=== PATIENT | male | born 1960 | race Caucasian/White ===

== ENCOUNTER 2022-11-06 16:38 | Observation (INO) | payer OTHER ==
[~2022-11-06] VITALS: Ht 182.9 cm; Wt 82.8 kg
[~2022-11-06 16:38] MED LIST: CO Q10100 MG PO; FISH OIL 1,0001 EAC5 PO; HYDCHL25 PO; LISI20 PO; LOVA40 PO; NADO40 PO; OSTERA TABLET1 EACH PO; Vitamin D2000 UNIT PO
[2022-11-06 21:13] LABS: Percent Saturation 4.7 % (20.0-50.0); Thyroid Stimulating Hormone 1.82 uIU/mL (0.360-4.800)
[2022-11-06 21:43] VITALS: BP 153/89
[2022-11-06 22:42] VITALS: BP 162/92
[2022-11-07] VITALS (8 sets, daily range): BP systolic 150–162; BP diastolic 77–93
[2022-11-07 01:08] LABS: Hematocrit 22.4 % (37.0-53.0); Hemoglobin 6.7 g/dL (13.5-17.5); Mean Corpuscular HGB 21.8 pg (26.0-34.0); Mean Corpuscular HGB Conc 29.9 g/dL (31.5-36.5); Mean Corpuscular Volume 73 fL (80-100); Platelet Count 75 K/mm3 (150-400); RDW Standard Deviation 54.2 fL (35.1-46.3); Red Blood Cell Count 3.08 M/mm3 (4.30-5.90); White Blood Cell Count 3.86 K/mm3 (4.00-11.30)
[2022-11-07 01:25] LABS: Mean Platelet Volume 10.3 fL (9.1-12.4)
[2022-11-07 01:32] LABS: Albumin, Blood 2.6 g/dL (3.4-5.0); Albumin/Globulin Ratio 0.6 (0.8-1.8); Bilirubin, Total 1.4 mg/dL (0.1-1.0); Bun/Creatinine Ratio 17.4 (12.0-20.0); Calcium, Blood 8.3 mg/dL (8.5-10.1); Creatinine, Blood 0.69 mg/dL (0.60-1.20); Potassium, Blood 3.9 mmol/L (3.5-5.5); Total Protein, Blood 6.6 g/dL (6.4-8.2)
[2022-11-07 02:03] LABS: BASOPHILS ABSOLUTE MAN 0.07 K/mm3 (0.00-0.23); BASOPHILS PERCENT MAN 2 % (0-2); EOSINOPHILS PERCENT MAN 8 % (0-6); LYMPHOCYTES ABSOLUTE MAN 1.04 K/mm3 (0.84-5.20); LYMPHOCYTES PERCENT MAN 27 % (21-46); MONOCYTES ABSOLUTE MAN 0.34 K/mm3 (0.16-1.47); MONOCYTES PERCENT MAN 9 % (4-13); NEUTROPHILS ABSOLUTE MAN 2.08 K/mm3 (1.96-9.15); SEG NEUTROPHILS PERCENT MAN 54 % (41-73); TOTAL CELLS COUNTED 100
--- NOTE | 2022-11-07 06:04 | NUR ---
Admit/ End of shift summary Pt admitted from the ED into room PCU 10. Blood was running on arrival to the unit. No skin issues were noted on check. Pt denies SOB or CP. ST 90-130s, Pt does report that he has been feeling like his heart has been "racing" lately. Overall complaints of general fatigue. Denies any signs of bleeding. Second unit of PRBC currently infusing. First unit showed no improvement in HbG. Pt has tolerated infusions well. Order for stool sample pending, Pt aware that sample needs collected. Pt is able to make needs known, call light is within reach.
[2022-11-07 08:34] LABS: Stool Occult Blood Guaiac 1 Neg (Neg)
[2022-11-07 09:09] LABS: Hematocrit 26.7 % (37.0-53.0); Mean Corpuscular HGB 21.5 pg (26.0-34.0); Mean Corpuscular Volume 72 fL (80-100); Platelet Count 77 K/mm3 (150-400); RDW Coefficient Variation 22.1 % (11.7-14.2); RDW Standard Deviation 56.2 fL (35.1-46.3); Red Blood Cell Count 3.72 M/mm3 (4.30-5.90); White Blood Cell Count 3.16 K/mm3 (4.00-11.30)
--- NOTE | 2022-11-07 09:13 | NUR ---
ASSUMED CARE REPORT FROM JESUS ESCOBAR AT 0700. PT RESTING IN BED. A&OX 4. FOLLOWS COMMANDS. STATES HE IS FEELING BETTER. 2ND UNIT OF PRBCS COMPLETE AT SHIFT CHANGE, REPEAT CBC IN ONE HOUR. LUNGS CLEAR. SR, RATE 80'S ON MONITOR. BP STABLE. PT P/W/D. STOOL SENT TO LAB, [facility]. INDEPENDENT IN ROOM. WILL CONTINUE TO MONITOR.
[2022-11-07 09:23] LABS: IMMATURE RETIC FRACTION 24.8 % (2.3-16.0); RETIC HGB EQUIVALENT 21.2 pg (28.20-36.60); RETICULOCYTE COUNT PERCENT 1.94 % (0.50-2.50)
--- NOTE | 2022-11-07 17:50 | NUR ---
SHIFT SUMMARY/TRANSFER TO MEDICAL FLOOR PT STATUS CHANGED TO MEDICAL s TELE. NO ACUTE CHANGES. PT CONTINUES TO BE ASYMPTOMATIC. AMBULATES TO BATHROOM s DIFFICULTIES. STATES HE IS FEELING BETTER. LUNGS CLEAR. NEURO WNL. SR, RATE 80'S. HTN NOTED, HOME MEDS RESTARTED. REPEAT H&H IMPROVED. IVF D/C'D. WILL CONTINUE TO MONITOR UNTIL TRANSFER TO MEDICAL FLOOR.
--- NOTE | 2022-11-07 18:56 | NUR ---
TRANSFER NOTE PTN TRANSFER FROM PCU AT 181, REPORT TAKEN FROM TIM. PTN SENT FROM URGENT CARE FOR LOW HGB 6.7, TRANSFUSED 2 UNITS HERE , NOW AT 8. WAS FATIGUED, COLD, DIAGNOSIS PANCYTOPENIA. PTN HX HTN, ALCOHOL USE WITH CIWA PRN. PASS ON TO KEVIN ESCOBAR NIGHT NURSE. CONTINUE PLAN OF CARE.
[2022-11-08 04:21] VITALS: BP 140/77
[2022-11-08 05:24] LABS: BASOPHILS ABSOLUTE AUTO 0.04 K/mm3 (0.00-0.23); BASOPHILS PERCENT AUTO 1 % (0-2); EOSINOPHILS ABSOLUTE AUTO 0.33 K/mm3 (0.00-0.68); EOSINOPHILS PERCENT AUTO 9 % (0-6); Hematocrit 26.8 % (37.0-53.0); Hemoglobin 7.9 g/dL (13.5-17.5); IMMATURE GRAN ABSOLUTE AUTO 0.01 K/mm3 (0.00-0.10); IMMATURE GRAN PERCENT AUTO 0 % (0-1); LYMPHOCYTES ABSOLUTE AUTO 1.09 K/mm3 (0.84-5.20); LYMPHOCYTES PERCENT AUTO 31 % (21-46); MONOCYTES ABSOLUTE AUTO 0.53 K/mm3 (0.16-1.47); MONOCYTES PERCENT AUTO 15 % (4-13); Mean Corpuscular HGB 21.4 pg (26.0-34.0); Mean Corpuscular HGB Conc 29.5 g/dL (31.5-36.5); Mean Corpuscular Volume 72 fL (80-100); NEUTROPHILS ABSOLUTE AUTO 1.57 K/mm3 (1.96-9.15); NEUTROPHILS PERCENT AUTO 44 % (41-73); NRBC ABSOLUTE 0.02 K/mm3 (0.00-0.02); NRBC Auto 0.6 /100 WBC (0.0-0.2); Platelet Count 77 K/mm3 (150-400); RDW Coefficient Variation 21.8 % (11.7-14.2); RDW Standard Deviation 56.3 fL (35.1-46.3); White Blood Cell Count 3.57 K/mm3 (4.00-11.30)
--- NOTE | 2022-11-08 05:34 | NUR ---
PATIENT SLEPT WELLT HROUGH THE NIGHT, ORIENTED, CALLS TO MAKE NEEDS KNOWN, IND IN ROOL. NO SIGNS OF BLEEDING. MILD PRODUCTIVE COUGH WHICH PATIENT WAS PRESCRIBED ANTIBIOTICS FOR PRIOR TO ADMISSION (NOT STARTED YET) AND WONDERS IF HE SHOULD COMPLETE PRESCRIBED. NO ISSUES TO REPORT THROUGH THE NIGHT.
[2022-11-08 05:43] LABS: Albumin, Blood 2.6 g/dL (3.4-5.0); Albumin/Globulin Ratio 0.6 (0.8-1.8); Bun/Creatinine Ratio 13.6 (12.0-20.0); Calcium, Blood 8.7 mg/dL (8.5-10.1); Creatinine, Blood 0.88 mg/dL (0.60-1.20); Potassium, Blood 4.1 mmol/L (3.5-5.5); Total Protein, Blood 6.6 g/dL (6.4-8.2)
[2022-11-08 07:27] VITALS: BP 130/88
[2022-11-08] MEDS ORDERED: LISI20 PO (12:49)
[2022-11-08] MEDS ORDERED: ONE DAILY ESS400 MCG PO (12:50)
[2022-11-08] MEDS ORDERED: ONDA4ODT MM (12:51)
[2022-11-08] MEDS ORDERED: FERSU90EL (12:52)
[2022-11-08] MEDS ORDERED: VITAMIN B-1100 M1 PO (12:52)
[2022-11-08] MEDS ORDERED: FERSU300 PO (12:53)
--- NOTE | 2022-11-08 13:28 | NUR ---
DISCHARGE SUMMARY DISCHARGE, FOLLOWUP, AND MEDICATION INSTRUCTIONS GIVEN TO PT. PT VOICED COMPLETE UNDERSTANDING AND HAS NO QUESTIONS AT THIS TIME. IV'S REMOVED WITH CATHETER TIP INTACT. WILL CONTINUE TO MONITOR UNTIL PT LEAVES UNIT.
== END 2022-11-08 13:59 | disposition home or self-care (01) ==
LOC: ER 16:38 → ERHOLD 16:39 → PCU 16:39 → MEDS 11-07 18:32 → ENPENDDIS 11-08 11:53 → MEDS 11-08 13:59
PROVIDERS: Family Medicine Adult Medicine; Nurse Practitioner Acute Care; ADMIT Student in an Organized Health Care Education/Training Program
DX: D61.818 Other pancytopenia (principal); J06.9 Acute upper respiratory infection, unspecified; I10 Essential (primary) hypertension; F10.20 Alcohol dependence, uncomplicated; I21.4 Non-ST elevation (NSTEMI) myocardial infarction
CPT/HCPCS: 36415; 36430; 71046; 80053; 82272; 82607; 82728; 82746; 83540; 83550; 83690; 83880; 84100; 84443; 84484; 85007; 85025; 85027; 85045; 86850; 86900; 86901; 86923; 93005; 93010; 93306; 96365; 96374; 96375; 96376; 99285-25; A9270; C9113; G0378; J2916; J7030; P9016

== ENCOUNTER 2024-08-19 04:54 | Inpatient (IN) | payer OTHER ==
[2024-08-19] VITALS (10 sets, daily range): BP systolic 120–132; BP diastolic 58–71
[~2024-08-19] VITALS: Ht 182.9 cm; Wt 77.0 kg
[~2024-08-19 04:54] MED LIST changes: +FERSU300 PO; +FERSU90EL; +ONDA4ODT MM; +ONE DAILY ESS400 MCG PO; +VITAMIN B-1100 M1 PO
[2024-08-19 05:59] LABS: BASOPHILS ABSOLUTE AUTO 0.09 K/mm3 (0.00-0.23); BASOPHILS PERCENT AUTO 1 % (0-2); EOSINOPHILS ABSOLUTE AUTO 0.25 K/mm3 (0.00-0.68); EOSINOPHILS PERCENT AUTO 1 % (0-6); Hematocrit 18.2 % (37.0-53.0); IMMATURE GRAN ABSOLUTE AUTO 0.55 K/mm3 (0.00-0.10); IMMATURE GRAN PERCENT AUTO 3 % (0-1); LYMPHOCYTES ABSOLUTE AUTO 3.57 K/mm3 (0.84-5.20); LYMPHOCYTES PERCENT AUTO 19 % (21-46); MONOCYTES ABSOLUTE AUTO 1.26 K/mm3 (0.16-1.47); MONOCYTES PERCENT AUTO 7 % (4-13); Mean Corpuscular HGB 37.4 pg (26.0-34.0); Mean Corpuscular HGB Conc 31.9 g/dL (31.5-36.5); Mean Corpuscular Volume 117 fL (80-100); Mean Platelet Volume 11.1 fL (9.1-12.4); NEUTROPHILS ABSOLUTE AUTO 12.72 K/mm3 (1.96-9.15); NEUTROPHILS PERCENT AUTO 69 % (41-73); NRBC ABSOLUTE 0.56 K/mm3 (0.00-0.02); Platelet Count 145 K/mm3 (150-400); RDW Coefficient Variation 20.2 % (11.7-14.2); RDW Standard Deviation 65.9 fL (35.1-46.3); Red Blood Cell Count 1.55 M/mm3 (4.30-5.90); White Blood Cell Count 18.44 K/mm3 (4.00-11.30)
[2024-08-19 06:09] LABS: Hemoglobin 5.8 g/dL (13.5-17.5)
[2024-08-19 06:31] LABS: Albumin, Blood 2.5 g/dL (3.4-5.0); Albumin/Globulin Ratio 0.7 (0.8-1.8); Bilirubin, Total 1.4 mg/dL (0.1-1.0); Bun/Creatinine Ratio 54.7 (12.0-20.0); Calcium, Blood 9.2 mg/dL (8.5-10.1); Creatinine, Blood 1.17 mg/dL (0.60-1.20); Globulin, Blood 3.4 g/dL (2.2-4.0); Potassium, Blood 4.1 mmol/L (3.5-5.5); Total Protein, Blood 5.9 g/dL (6.4-8.2)
[2024-08-19] MEDS ORDERED: NS 1,000 ML IV ONE (08:56)
[2024-08-19] MEDS ORDERED: FLU VACC TS2024-25(6MOS UP)/PF 45 MCG/0.5 ML SYRINGE IM PRN (10:00)
[2024-08-19] MEDS ORDERED: Octreotide Acetate 50 MCG in NS 50 ML IV STA (10:47)
[2024-08-19] MEDS ORDERED: Pantoprazole Sodium 40 MG in NS 50 ML IV SCH (10:50)
[2024-08-19] MEDS ORDERED: Octreotide Acetate 500 MCG in NS 250 ML IV SCH ×2 (10:50→10:55)
[2024-08-19] MEDS ORDERED: Pantoprazole Sodium 40 MG Injection IV ONE (11:00)
[2024-08-19 11:23] LABS: IMMATURE RETIC FRACTION 50.1 % (2.3-16.0); RETIC HGB EQUIVALENT 40.5 pg (28.20-36.60); RETICULOCYTE ABSOLUTE 0.179 M/mm3 (0.0200-0.1100); RETICULOCYTE COUNT PERCENT 9.52 % (0.50-2.50)
[2024-08-19 11:34] LABS: Hematocrit 20.7 % (37.0-53.0); Hemoglobin 6.9 g/dL (13.5-17.5)
[2024-08-19 11:49] LABS: Percent Saturation 8.1 % (20.0-50.0)
[2024-08-19 12:07] LABS: Influenza A, PCR NEGATIVE (NEGATIVE); Influenza B, PCR NEGATIVE (NEGATIVE); Resp Syncytial Virus, PCR NEGATIVE (NEGATIVE); SARS-Cov-2 (COVID-19) PCR, MMC NEGATIVE (NEGATIVE)
[2024-08-19] MEDS ORDERED: CefTRIAXone Sodium 1,000 MG in NS 100 ML IV SCH (18:00)
--- NOTE | 2024-08-19 18:01 | NUR ---
SUMMARY PT ADMITTED TO ICU 15 THIS AM PCU STATUS. A/O X4. LIFT TRANSFER TO BED PT STATES HIS LEGS HAVE BEEN VERY WEAK. HE HAS FALLEN AT HOME RECENTLY WELL. HIS R FOOT IS BRUISED AND HAS SORE RIBS. ONE UNIT OF PRBC'S RUNNING AT ADMIT AND ANOTHER GIVEN AFTER. PT STATES HE IS FEELING BETTER AFTER TRANFUSION. HAVE NOT SEEN ANY SIGNS OF BLEEDING. AWAITING DR. TAYLOR CONSULT. NO SIGN OF DISTRESS.
[2024-08-19 18:16] LABS: Hemoglobin 7.5 g/dL (13.5-17.5)
--- NOTE | 2024-08-19 22:16 | NUR ---
DR. TAYLOR TO ROOM FOR PT EVAL
--- NOTE | 2024-08-19 22:48 | NUR ---
PT TO U ROOM 14. REPORT CALLED TO JANETH ESCOBAR. PT TRANSFERRED VIA WC TO U W/OUT INCIDENT.
[2024-08-20] VITALS (26 sets, daily range): BP systolic 119–156; BP diastolic 64–128
[2024-08-20 05:09] LABS: BASOPHILS ABSOLUTE AUTO 0.06 K/mm3 (0.00-0.23); BASOPHILS PERCENT AUTO 1 % (0-2); EOSINOPHILS ABSOLUTE AUTO 0.38 K/mm3 (0.00-0.68); EOSINOPHILS PERCENT AUTO 5 % (0-6); Hematocrit 20.3 % (37.0-53.0); Hemoglobin 6.8 g/dL (13.5-17.5); IMMATURE GRAN ABSOLUTE AUTO 0.19 K/mm3 (0.00-0.10); IMMATURE GRAN PERCENT AUTO 2 % (0-1); LYMPHOCYTES ABSOLUTE AUTO 1.81 K/mm3 (0.84-5.20); LYMPHOCYTES PERCENT AUTO 22 % (21-46); MONOCYTES ABSOLUTE AUTO 0.99 K/mm3 (0.16-1.47); MONOCYTES PERCENT AUTO 12 % (4-13); Mean Corpuscular HGB 35.6 pg (26.0-34.0); Mean Corpuscular HGB Conc 33.5 g/dL (31.5-36.5); Mean Platelet Volume 10.2 fL (9.1-12.4); NEUTROPHILS ABSOLUTE AUTO 4.76 K/mm3 (1.96-9.15); NEUTROPHILS PERCENT AUTO 58 % (41-73); NRBC ABSOLUTE 0.26 K/mm3 (0.00-0.02); NRBC Auto 3.2 /100 WBC (0.0-0.2); Platelet Count 79 K/mm3 (150-400); RDW Coefficient Variation 21.8 % (11.7-14.2); RDW Standard Deviation 70.5 fL (35.1-46.3); Red Blood Cell Count 1.91 M/mm3 (4.30-5.90); White Blood Cell Count 8.19 K/mm3 (4.00-11.30)
[2024-08-20 05:17] LABS: Mean Corpuscular Volume 106 fL (80-100)
[2024-08-20 05:24] LABS: International Normalized Ratio 1.33; Prothrombin Time Results 13.9 Sec (9.7-11.5)
[2024-08-20 05:47] LABS: Albumin, Blood 2.1 g/dL (3.4-5.0); Albumin/Globulin Ratio 0.7 (0.8-1.8); Bilirubin, Total 1.8 mg/dL (0.1-1.0); Bun/Creatinine Ratio 29.3 (12.0-20.0); Calcium, Blood 7.8 mg/dL (8.5-10.1); Creatinine, Blood 1.16 mg/dL (0.60-1.20); Globulin, Blood 2.9 g/dL (2.2-4.0); Potassium, Blood 4.2 mmol/L (3.5-5.5)
--- NOTE | 2024-08-20 05:59 | NUR ---
SHIFT SUMMARY PATIENT ALERT, ORIENTED x4. ABLE TO MAKE NEEDS KNOWN TO STAFF. BP STABLE. ON TELE SR. DENIED CHEST PAIN. REMAINED ON RA WITH SPO2 >95%. PATIENT USING URINAL INDEPENDENTLY, ADEQUATE OUTPUT DURING THE NIGHT. PROTONIX AND SANDOSTATIN INFUSING PER EMAR. WATER AND ICE CHIPS ONLY AFTER MIDNIGHT IN PREPARATION FOR SCOPE DURING DAY SHIFT. NO OTHER CHANGES DURING THE NIGHT. WILL REPORT TO DAY SHIFT RN.
[2024-08-20] MEDS ORDERED: NS 500 ML IV SCH (06:50)
--- NOTE | 2024-08-20 09:23 | NUR ---
GO LYTLY STARTED
[2024-08-20] MEDS ORDERED: Peg/Electrolytes 4,000 ML BTL PO ONE (09:30)
[2024-08-20] MEDS ORDERED: Acetaminophen 325 MG TABLET PO PRN (10:10)
[2024-08-20 11:48] LABS: Hemoglobin 8.1 g/dL (13.5-17.5)
[2024-08-20] MEDS ORDERED: Sod Phosphate/Sod Biphosphate 132 ML BTL PR ONE (14:00)
[2024-08-20] MEDS ORDERED: Lactated Ringer's 1,000 ML IV SCH (17:35)
--- NOTE | 2024-08-20 17:43 | NUR ---
PT TO UNIT VIA W/C. ABLE TO TRANSFER HIMSELF INDEPENDENTLY. GLASSES REMAIN WITH PT. PT CURRENTLY ON TELE. History, Chart, Medications and Allergies reviewed before start of procedure. Pre-Op teaching done. Pt verbalizes understanding. ALL OTHER BELONGINS LEFT IN PT'S ROOM INCLUDING UNDERWARE.
[2024-08-20] MEDS ORDERED: propofoL 40 ML IV ONE ×2 (17:51→18:05)
--- NOTE | 2024-08-20 18:03 | NUR ---
08/20/24 1803 Negar Acevedo History, Chart, Medications and Allergies reviewed before start of procedure. MONITOR INTACT WITH CONTINUOUS PULSE OXIMETRY, CONTINUOUS END TITAL CO2, 3-LEAD EKG AND INTERMITTENT BLOOD PRESSURE. 3-LEAD EKG REVIEWED WITH PHYSICIAN PRIOR TO START OF PROCEDURE. O2 VIA POM INTACT THROUGHOUT SEDATION/PROCEDURE. Bite Block Placed.
--- NOTE | 2024-08-20 18:06 | NUR ---
SHIFT SUMMARY PATIENT TO SURGERY AT ABOUT 1745. A/O X4. HAVING CLEAR GREEN STOOL WITH SPECKS, DR CHAND OKAYED THIS COLOR, NO FURTHER INTERVENTIONS NEEDED OF NOW. ABLE TO USE BSC WITH MINIMAL ASSIST. VSS WITH BOUTS OF TACHYCARDIA INTO THE 140'S WHILE USING BSC, ASYMPTOMATIC AT TIME OF. ABLE TO MAKE NEEDS KNOWN. CARES ONGOING.
[2024-08-20 19:28] LABS: Hemoglobin 7.4 g/dL (13.5-17.5)
[2024-08-21] VITALS (9 sets, daily range): BP systolic 107–139; BP diastolic 68–83
[2024-08-21] MEDS ORDERED: Peg/Electrolytes 4,000 ML BTL PO ONE (05:00)
[2024-08-21 05:08] LABS: BASOPHILS ABSOLUTE AUTO 0.02 K/mm3 (0.00-0.23); BASOPHILS PERCENT AUTO 1 % (0-2); EOSINOPHILS ABSOLUTE AUTO 0.17 K/mm3 (0.00-0.68); EOSINOPHILS PERCENT AUTO 5 % (0-6); Hematocrit 20.6 % (37.0-53.0); Hemoglobin 6.8 g/dL (13.5-17.5); IMMATURE GRAN ABSOLUTE AUTO 0.03 K/mm3 (0.00-0.10); IMMATURE GRAN PERCENT AUTO 1 % (0-1); LYMPHOCYTES ABSOLUTE AUTO 0.88 K/mm3 (0.84-5.20); LYMPHOCYTES PERCENT AUTO 24 % (21-46); MONOCYTES ABSOLUTE AUTO 0.62 K/mm3 (0.16-1.47); MONOCYTES PERCENT AUTO 17 % (4-13); Mean Corpuscular HGB 33.7 pg (26.0-34.0); Mean Corpuscular Volume 102 fL (80-100); Mean Platelet Volume 9.7 fL (9.1-12.4); NEUTROPHILS ABSOLUTE AUTO 2.03 K/mm3 (1.96-9.15); NEUTROPHILS PERCENT AUTO 54 % (41-73); NRBC ABSOLUTE 0.04 K/mm3 (0.00-0.02); NRBC Auto 1.1 /100 WBC (0.0-0.2); Platelet Count 57 K/mm3 (150-400); RDW Coefficient Variation 21.3 % (11.7-14.2); RDW Standard Deviation 70.4 fL (35.1-46.3); Red Blood Cell Count 2.02 M/mm3 (4.30-5.90); White Blood Cell Count 3.75 K/mm3 (4.00-11.30)
[2024-08-21 05:39] LABS: Albumin/Globulin Ratio 0.8 (0.8-1.8); Bilirubin, Total 1.4 mg/dL (0.1-1.0); Bun/Creatinine Ratio 21.2 (12.0-20.0); Calcium, Blood 7.2 mg/dL (8.5-10.1); Creatinine, Blood 1.04 mg/dL (0.60-1.20); Globulin, Blood 2.6 g/dL (2.2-4.0); Potassium, Blood 3.9 mmol/L (3.5-5.5); Total Protein, Blood 4.6 g/dL (6.4-8.2)
[2024-08-21] MEDS ORDERED: NS 250 ML IV PRN (05:50)
[2024-08-21] MEDS ORDERED: Pantoprazole Sodium 20 MG Tab PO SCH (06:00)
--- NOTE | 2024-08-21 06:05 | NUR ---
SHIFT SUMMARY PATIENT ALERT, ORIENTED x4. ABLE TO MAKE NEEDS KNOWN TO STAFF. BP STABLE. ON TELE, SR. PATIENT PLACED ON 2L NC WHILE SLEEPING D/T OCCASIONAL DESAT. ON RA WHILE AWAKE, SPO2 >90%> PATIENT USING URINAL AND BEDSIDE COMMODE INDEPENDENTLY. ADEQUATE OUTPUT DURING THE NIGHT. SANDOSTATIN GTT INFUSING PER EMAR. PATIENT WITH HgB 6.8 THIS AM, 1u PRBC ORDERED BY RESIDENT. NO OTHER CHANGES THIS SHIFT, WILL REPORT TO DAY SHIFT RN.
[2024-08-21] MEDS ORDERED: ATOR40TA PO (07:46)
[2024-08-21] MEDS ORDERED: ATEN25 PO (07:46)
[2024-08-21] MEDS ORDERED: Carvedilol 3.125 MG Tab PO SCH (08:00)
[2024-08-21] MEDS ORDERED: Sod Ferric Gluc Complx/Sucrose 125 MG in NS 100 ML IV SCH (11:16)
[2024-08-21 13:14] LABS: BASOPHILS ABSOLUTE AUTO 0.03 K/mm3 (0.00-0.23); BASOPHILS PERCENT AUTO 1 % (0-2); EOSINOPHILS ABSOLUTE AUTO 0.18 K/mm3 (0.00-0.68); EOSINOPHILS PERCENT AUTO 5 % (0-6); Hematocrit 25.5 % (37.0-53.0); Hemoglobin 8.6 g/dL (13.5-17.5); IMMATURE GRAN ABSOLUTE AUTO 0.02 K/mm3 (0.00-0.10); IMMATURE GRAN PERCENT AUTO 1 % (0-1); LYMPHOCYTES ABSOLUTE AUTO 0.88 K/mm3 (0.84-5.20); LYMPHOCYTES PERCENT AUTO 24 % (21-46); MONOCYTES ABSOLUTE AUTO 0.63 K/mm3 (0.16-1.47); MONOCYTES PERCENT AUTO 17 % (4-13); Mean Corpuscular HGB 33.9 pg (26.0-34.0); Mean Corpuscular HGB Conc 33.7 g/dL (31.5-36.5); Mean Corpuscular Volume 100 fL (80-100); Mean Platelet Volume 10.5 fL (9.1-12.4); NEUTROPHILS ABSOLUTE AUTO 2.01 K/mm3 (1.96-9.15); NEUTROPHILS PERCENT AUTO 54 % (41-73); Platelet Count 61 K/mm3 (150-400); RDW Coefficient Variation 21.1 % (11.7-14.2); RDW Standard Deviation 69.4 fL (35.1-46.3); Red Blood Cell Count 2.54 M/mm3 (4.30-5.90); White Blood Cell Count 3.75 K/mm3 (4.00-11.30)
--- NOTE | 2024-08-21 17:57 | NUR ---
SHIFT SUMMARY: PT A&OX4. FOLLOWS COMMANDS AND MAKES NEEDS KNOWN TO STAFF. PT HAS DENIED ANY CP, SOB OR ABD PAIN DURING SHIFT. SANDOSTATIN GTT CONTINUES. PT RECIEVED A UNIT OF BLOOD THIS MORNING. NO SIGNIFICANT EVENTS HAPPENED DURING THIS SHIFT. WILL CONTINUE TO CARE FOR PT TILL END OF SHIFT.
--- NOTE | 2024-08-21 19:58 | NUR ---
ASUMPTION OF CARE ASSUMED PT'S CARE AT 1900,BEDSIDE REPORT COMPLETED.PT WIDE AWAKE WATCHING TV.PLAN OF CARE REVIEWED.OCREOTIDE INFUSING ORDERED.PT DENIES PAIN,DENIES NEEDS.CALL LIGHT AND PT'S ITEMS WITHIN REACH.WILL CONTINUE TO MONITOR.
[2024-08-22 00:21] VITALS: BP 113/66
[2024-08-22 03:38] VITALS: BP 130/75
[2024-08-22 03:54] LABS: Hematocrit 25.4 % (37.0-53.0); Hemoglobin 8.5 g/dL (13.5-17.5)
[2024-08-22 04:13] LABS: Albumin, Blood 2.1 g/dL (3.4-5.0); Albumin/Globulin Ratio 0.8 (0.8-1.8); Bilirubin, Total 1.4 mg/dL (0.1-1.0); Bun/Creatinine Ratio 16.5 (12.0-20.0); Calcium, Blood 7.2 mg/dL (8.5-10.1); Creatinine, Blood 1.09 mg/dL (0.60-1.20); Globulin, Blood 2.8 g/dL (2.2-4.0); Potassium, Blood 4.6 mmol/L (3.5-5.5); Total Protein, Blood 4.9 g/dL (6.4-8.2)
--- NOTE | 2024-08-22 06:22 | NUR ---
SHIFT SUMMARY PT SLEPT ON AND OFF,REPORTS SLEEPING BETTER WITH THE OXYGEN ON.PT WAS PLACED ON 2L OXYGEN VIA NC.HIS OXYGEN SATURATION DROPPED TO 87% AND SUSTAINED.PT STATES THAT HE DOES NOT SLEEP WELL AT HOME AND THINKS THAT HE MIGHT NEED OXYGEN WHILE SLEEPING.PT HAD ONE EPISODE OF BRADYCARDIA,HR DROPPED DOWN TO 45BPM.PT WAS SOUND ASLEEP, ASYMPTOMATIC ON ASSESSMENT.PT REPORTS THAT HE HAS BEEN TOLD BEFORE THAT HIS HR DROPS WHILE HE SLEEPS.OCREOTIDE INFUSING ORDERED.PT DENIES PAIN,DENIES NEEDS THIS MORNING.CALL LIGHT AND PT'S ITEMS WITHIN REACH.WILL GIVE REPORT TO DAYSHIFT NURSE FOR CONTINUITY OF CARE.
[2024-08-22 07:31] LABS: BASOPHILS ABSOLUTE AUTO 0.03 K/mm3 (0.00-0.23); BASOPHILS PERCENT AUTO 1 % (0-2); EOSINOPHILS PERCENT AUTO 7 % (0-6); IMMATURE GRAN ABSOLUTE AUTO 0.01 K/mm3 (0.00-0.10); IMMATURE GRAN PERCENT AUTO 0 % (0-1); LYMPHOCYTES ABSOLUTE AUTO 0.94 K/mm3 (0.84-5.20); LYMPHOCYTES PERCENT AUTO 32 % (21-46); MONOCYTES ABSOLUTE AUTO 0.58 K/mm3 (0.16-1.47); MONOCYTES PERCENT AUTO 20 % (4-13); Mean Corpuscular HGB 33.5 pg (26.0-34.0); Mean Corpuscular HGB Conc 32.9 g/dL (31.5-36.5); Mean Corpuscular Volume 102 fL (80-100); Mean Platelet Volume 10.6 fL (9.1-12.4); NEUTROPHILS ABSOLUTE AUTO 1.21 K/mm3 (1.96-9.15); NEUTROPHILS PERCENT AUTO 41 % (41-73); NRBC ABSOLUTE 0.02 K/mm3 (0.00-0.02); NRBC Auto 0.7 /100 WBC (0.0-0.2); Platelet Count 52 K/mm3 (150-400); Red Blood Cell Count 2.54 M/mm3 (4.30-5.90); White Blood Cell Count 2.97 K/mm3 (4.00-11.30)
[2024-08-22 07:41] LABS: HEPATITIS B SURFACE ANTIBODY <3.10 IU/L
[2024-08-22 07:51] LABS: HEPATITIS B SURFACE ANTIGEN Negative (Negative)
[2024-08-22 08:28] VITALS: BP 128/71
[2024-08-22 08:30] LABS: HEPATITIS C AB CIA INTERP Negative (Negative); HEPATITIS C ANTIBODY CIA INDEX 0.07 IV
[2024-08-22 08:51] LABS: HBV CORE ANTIBODIES,TOTAL Negative (Negative)
[2024-08-22] MEDS ORDERED: Multivitamins 1 Tab PO SCH (09:00)
[2024-08-22] MEDS ORDERED: Ciprofloxacin 500 MG Tab PO SCH (09:00)
[2024-08-22] MEDS ORDERED: Cholecalciferol 1000 Unit Tablet (=25MCG) PO SCH (09:00)
[2024-08-22] MEDS ORDERED: Atorvastatin 40 MG Tab PO SCH (09:00)
[2024-08-22 09:22] LABS: HEPATITIS A ANTIBODIES, TOTAL Positive (Negative)
[2024-08-22 11:56] VITALS: BP 135/96
[2024-08-22] MEDS ORDERED: CARV3.125 PO (11:57)
[2024-08-22] MEDS ORDERED: CIPR500 PO (11:58)
[2024-08-22] MEDS ORDERED: PANT20 PO (11:58)
[2024-08-23] MEDS ORDERED: Thiamine HCl 100 MG Tab PO SCH (09:00)
[2024-08-23] MEDS ORDERED: Atenolol 25 MG Tab PO SCH (09:00)
== END 2024-08-22 13:44 | disposition home or self-care (01) | DRG 811 ==
LOC: ER 04:54 → ICUE 04:55 → PCU 04:55 → ICUE 04:55 → PCU 22:37
PROVIDERS: Emergency Medicine; Family Medicine; Internal Medicine Gastroenterology; Student in an Organized Health Care Education/Training Program; ADMIT Internal Medicine
PROC: 30233N1 Transfusion of Nonautologous Red Blood Cells into Peripheral Vein, Percutaneous Approach (ICD-10-PCS; principal; 2024-08-19)
PROC: 0DJD8ZZ Inspection of Lower Intestinal Tract, Via Natural or Artificial Opening Endoscopic (ICD-10-PCS; 2024-08-20)
PROC: 0DB78ZX Excision of Stomach, Pylorus, Via Natural or Artificial Opening Endoscopic, Diagnostic (ICD-10-PCS; 2024-08-20 14:30)
DX: D62 Acute posthemorrhagic anemia (principal); K29.61 Other gastritis with bleeding; N17.9 Acute kidney failure, unspecified; I85.00 Esophageal varices without bleeding; R18.8 Other ascites; K76.6 Portal hypertension; A04.8 Other specified bacterial intestinal infections; K76.0 Fatty (change of) liver, not elsewhere classified; F10.10 Alcohol abuse, uncomplicated; K74.60 Unspecified cirrhosis of liver; I10 Essential (primary) hypertension; K31.89 Other diseases of stomach and duodenum; K57.30 Diverticulosis of large intestine without perforation or abscess without bleeding; K64.4 Residual hemorrhoidal skin tags; K22.2 Esophageal obstruction; Z79.811 Long term (current) use of aromatase inhibitors; Z79.899 Other long term (current) drug therapy; Z86.79 Personal history of other diseases of the circulatory system
CPT/HCPCS: 0241U; 36415; 36430; 71046; 76705; 80053; 80320; 82105; 82271; 82607; 82728; 82746; 83540; 83550; 83605; 83880; 84484; 85014; 85018; 85025; 85045; 85610; 86704; 86708; 86803; 86850; 86900; 86901; 86923; 87340; 93005; 93010; 94762; 99285-25; A9270; C1751; G0378; J0696; J2354; J2470; J2704; J2916; J7030; J7040; J7050; J7120; P9016